=== PATIENT | female | born 1970 | race Caucasian/White ===

== ENCOUNTER → 2017-05-05 | Day surgery (SDC) | payer OTHER ==
[~2017-05-05] VITALS: Ht 154.9 cm; Wt 59.0 kg
[~2017-05-05] MED LIST: CRESTOR10 M1 PO; RELPAX40 M1
--- NOTE | 2017-05-05 13:57 | Operative Report ---
Operative/Inv Procedure Report Surgery Date: 05/05/17 Name of Procedure: right ureteroscopy with laser lithotripsy and stent placement Pre-Operative Diagnosis: right renal stone Post-Operative Diagnosis: same Estimated Blood Loss: scant Surgeon/Barn Manager: JM ADAMS MD Anesthesia: laryngeal mask airway Drains: 6x22cm stent Specimens: stone Complications: none Condition: stable Operative Indication: right renal stone Operative/Procedure Note Note: This an operative dictation on patient Mai Anaya. Patient was identified in the holding area and consented for right renal ureteroscopy with laser lithotripsy and stent placement. She was given the risks benefits and alternatives of the surgery and she wished to proceed. All questions were answered. Patient was taken to the operating room placed on the operating table in the supine position. Timeout was performed and LMA general anesthesia was given IV antibiotics were infused. She was placed in the dorsolithotomy position and prepped and draped in the standard sterile fashion. Cystoscopy was performed and the bladder was globally inspected and the anatomy was within normal limits. The right ureteral orifice was easily cannulated with a solo guidewire. This was followed by Super Stiff wire using the dual-lumen catheter. This wires were seen to be in good position by fluoroscopy. A 35 cm ureteral access sheath was then placed over the superstiff guidewire. However it was seen to be too long in length and it was switched out for 25 cm ureteral access sheath. The flexible ureteroscope was then used to go to the renal pelvis. Upon doing so at the large 1 cm yellow stone was encountered. A 400 laser fiber was then used to slowly chipped away at the stone and break it into multiple small fragments. It was a semi-hard stone and took some time to fragment the stone into small fragments. Once this was done the 0 tip basket was then used to remove the fragments. A few the fragments did need to be chased after into the upper mid pole. Once all the larger fragments were removed the remaining fragments were too small to grasp and able to be passed freely. There were no larger's specimen seen. Retropyelogram was performed to ensure that all the calyces were examined. The ureteroscope was then removed and the ureter was examined while removing it. No other stones were seen. The remaining Solo wire was then used with the cystoscope to place a 6 x 22 cm ureteral stent. Stent was seen to be in good position and the wire was removed. The stent was still in good position. The bladder was emptied. The patient tolerated the procedure well. Findings: renal pelvis stone 1cm in size Discharge Disposition: PACU
--- NOTE | 2017-05-05 15:34 | RADIOLOGY REPORT ---
EXAMINATION: XR ABDOMEN CLINICAL INDICATION: Right ureteroscopy, lithotripsy and stent placement performed in operating room. COMPARISON: None TECHNIQUE: Fluoroscopic imaging of the right abdomen was utilized for urologic procedures. Fluoroscopy time: 20.5 seconds. Dose: 180.84 mrad. Number of saved fluoroscopy images: 21. FINDINGS: Please refer to the operative report regarding specifics for the urologic procedures. Patient underwent retrograde pyeloureterography, lithotripsy and stent placement. IMPRESSION: Fluoroscopic imaging assistance was provided to the operating room.
== END ==
LOC: STS 01:29
DX: N20.0 Calculus of kidney (principal); R31.21 Asymptomatic microscopic hematuria; J45.909 Unspecified asthma, uncomplicated
CPT/HCPCS: 74000; 81025; C2617; J0690